=== PATIENT | female | born 1970 | race Caucasian/White ===

== ENCOUNTER → 2018-03-24 | Outpatient (CLI) | payer OTHER | LOC: COL.RAD 09:30 | DX: S33.6XXD Sprain of sacroiliac joint, subsequent encounter (principal); S30.0XXD Contusion of lower back and pelvis, subsequent encounter; Z98.890 Other specified postprocedural states ==

== ENCOUNTER 2018-03-29 14:23 | Outpatient (RCR) | payer OTHER | END 2018-03-30 09:41 | disposition home or self-care (01) | LOC: WSOH 14:23 | DX: S33.6XXA Sprain of sacroiliac joint, initial encounter (principal); S30.0XXA Contusion of lower back and pelvis, initial encounter; F17.210 Nicotine dependence, cigarettes, uncomplicated; W01.0XXA Fall on same level from slipping, tripping and stumbling without subsequent striking against object, initial encounter; W03.XXXA Other fall on same level due to collision with another person, initial encounter; Y99.0 Civilian activity done for income or pay ==